=== PATIENT | female | born 1975 | race Caucasian/White ===

== ENCOUNTER 2020-12-28 09:45 | Outpatient (CLI) | payer OTHER | END 2020-12-28 09:46 | disposition home or self-care (01) | LOC: BICMAMMO 09:45 | PROVIDERS: ATTEND Obstetrics & Gynecology | DX: Z12.31 Encounter for screening mammogram for malignant neoplasm of breast (principal); Z80.3 Family history of malignant neoplasm of breast; Z91.89 Other specified personal risk factors, not elsewhere classified | CPT/HCPCS: 77063; 77067 ==

== ENCOUNTER 2021-07-19 12:17 | Outpatient (CLI) | payer OTHER ==
[2021-07-19 23:30] LABS: SARS-CoV-2 PCR by NAA Not Detected (NotDetected)
== END 2021-07-19 12:18 | disposition home or self-care (01) ==
LOC: LABBT 12:17
PROVIDERS: ATTEND Plastic Surgery
DX: Z01.812 Encounter for preprocedural laboratory examination (principal); Z20.822 Contact with and (suspected) exposure to COVID-19
CPT/HCPCS: U0003; U0005

== ENCOUNTER 2021-07-22 09:55 | Day surgery (SDC) | payer OTHER ==
[2021-07-20 14:09] VITALS: BMI 25.0
[2021-07-22] MEDS ORDERED: EPINEPHrine 1 MG/ML AMP ONE (10:12)
[2021-07-22] MEDS ORDERED: Bupivacaine 0.25% 10 ML VIAL ONE (10:12)
[2021-07-22] MEDS ORDERED: ceFAZolin 2 GM/DEX 5% 100 ML BAG ONE (10:23)
[2021-07-22] MEDS ORDERED: Heparin 5,000 UNITS/ML VIAL ONE (10:23)
[2021-07-22] MEDS ORDERED: Promethazine HCl 25 MG/ML VIAL ONE (10:52)
[2021-07-22] MEDS ORDERED: Fentanyl 100 MCG/2 ML VIAL ONE ×2 (10:52→15:47)
[2021-07-22] MEDS ORDERED: ePHEDrine 50 MG/ML VIAL ONE (11:04)
[2021-07-22] MEDS ORDERED: Lidocaine 1% PF 5 ML VIAL ONE (11:04)
[2021-07-22] MEDS ORDERED: Dexamethasone 20 MG/5 ML VIAL ONE (11:04)
[2021-07-22] MEDS ORDERED: Ondansetron PF 4 MG/2 ML Vial ONE (11:04)
[2021-07-22] MEDS ORDERED: PROPOFOL 200 MG/20 ML VIAL ONE (11:04)
[2021-07-22] MEDS ORDERED: Ketorolac Tromethamine 30 MG/ML VIAL ONE (11:04)
[2021-07-22] MEDS ORDERED: Tranexamic Acid 1,000 MG/10 ML VIAL ONE (12:37)
[2021-07-22] MEDS ORDERED: HYDROcodone/Acetaminophen 5/325 mg Tablet ONE (17:32)
== END 2021-07-22 17:55 | disposition home or self-care (01) ==
LOC: SDC 09:55
PROVIDERS: ATTEND Plastic Surgery
PROC: 0HBV0ZZ Excision of Bilateral Breast, Open Approach (ICD-10-PCS; principal; 2021-07-22)
DX: N62 Hypertrophy of breast (principal); Z85.820 Personal history of malignant melanoma of skin; Z79.818 Long term (current) use of other agents affecting estrogen receptors and estrogen levels; Z88.5 Allergy status to narcotic agent
CPT/HCPCS: 88305; 93005; 93010; J0171; J1100; J1644; J1885; J2405; J2550; J2704; J3010; J3490; S0020

== ENCOUNTER 2023-12-14 11:28 | Outpatient (CLI) | payer OTHER | END 2023-12-14 11:29 | disposition home or self-care (01) | LOC: BICRAD 11:28 | PROVIDERS: ATTEND Family Medicine | DX: S69.92XA Unspecified injury of left wrist, hand and finger(s), initial encounter (principal) ==